=== PATIENT | male | born 1955 | race Caucasian/White ===

== ENCOUNTER 2021-10-11 06:47 | Emergency (ER) | payer OTHER ==
[~2021-10-11] VITALS: Ht 177.8 cm; Wt 104.3 kg
[2021-10-11] MEDS ORDERED: CYMBALTA20 MG PO (07:14)
[2021-10-11] MEDS ORDERED: SAVAYSA30 MG PO (07:14)
[2021-10-11] MEDS ORDERED: LIPITOR40 MG PO (07:15)
[2021-10-11] MEDS ORDERED: ZESTRIL5 MG PO (07:16)
[2021-10-11] MEDS ORDERED: TOPROL XL25 MG PO (07:16)
[2021-10-11] MEDS ORDERED: INTRINSI B12-F1 EACH PO (07:17)
--- NOTE | 2021-10-11 20:28 | EKG ---
[facility] [address] [place], [place] [address] Signed Sinus bradycardia with 1st degree AV block T wave abnormality, consider lateral ischemia Abnormal ECG No previous ECGs available Confirmed by LARISA ANNE MD [id number] on 10/11/2021 8:28:26 PM Electronically Signed By: LARISA ANNE MD 10/11/212027 PATIENT NAME: LALO QUIROZ Electrocardiogram DATE OF : 59 PHYSICIAN: LARISA ANNE MD REPORT #: [id number] REPORT IS CONFIDENTIAL AND NOT TO BE RELEASED WITHOUT AUTHORIZATION
== END 2021-10-11 15:19 | disposition home or self-care (01) ==
LOC: ED 06:47
DX: R07.89 Other chest pain (principal); R00.1 Bradycardia, unspecified; I10 Essential (primary) hypertension; E78.5 Hyperlipidemia, unspecified; Z86.73 Personal history of transient ischemic attack (TIA), and cerebral infarction without residual deficits; Z95.810 Presence of automatic (implantable) cardiac defibrillator; Z79.899 Other long term (current) drug therapy
CPT/HCPCS: 71045; 71046; 80053; 83735; 84484; 85025; 93005; 93010; 99285-25